=== PATIENT | female | born 1980 | race Caucasian/White ===

== ENCOUNTER 2017-02-14 14:29 | Observation (INO) | payer MEDICAID ==
[~2017-02-14] VITALS: Ht 172.7 cm; Wt 117.9 kg
[2017-02-14 17:41] LABS: BARBITURATE, URINE NEGATIVE (NEG <=200); BENZODIAZEPINE, URINE NEGATIVE (NEG <=150); CANNABINOID, URINE NEGATIVE (NEG <=50); COCAINE, URINE NEGATIVE (NEG <=150); METHAMPHETAMINES SCREEN,URINE NEGATIVE (NEG <=500); OPIATE, URINE NEGATIVE (NEG <=100); PHENCYCLIDINE SCREEN,URINE NEGATIVE (NEG <=25); UR TRICYCLIC ANTIDEPRESSANTS NEGATIVE (NEG <=300); URINE AMPHETAMINE NEGATIVE (NEG <=500); URINE METHADONE NEGATIVE (NEG <=200); URINE OXYCODONE SCREEN NEGATIVE (NEG <=100); URINE PROPOXYPHENE SCREEN NEGATIVE (NEG <=300)
== END 2017-02-14 17:20 | disposition home or self-care (01) ==
LOC: SED 14:29 → SPU 15:30
PROVIDERS: ADMIT Specialist; ATTEND Specialist
DX: O26.893 Other specified pregnancy related conditions, third trimester (principal); R10.2 Pelvic and perineal pain; R10.9 Unspecified abdominal pain; Z3A.37 37 weeks gestation of pregnancy
CPT/HCPCS: 80307; 81002; G0378

== ENCOUNTER 2017-02-20 15:35 | Observation (INO) | payer MEDICAID | END 2017-02-20 17:25 | disposition home or self-care (01) | LOC: SPU 15:35 | PROVIDERS: ADMIT Obstetrics & Gynecology; ATTEND Obstetrics & Gynecology | DX: O62.9 Abnormality of forces of labor, unspecified (principal); Z3A.38 38 weeks gestation of pregnancy | CPT/HCPCS: 81002-TC; G0378 ==